=== PATIENT | male | born 1945 | race Caucasian/White ===

== ENCOUNTER → 2019-04-21 09:58 | Outpatient (CLI) | payer MEDICARE, OTHER, SELFPAY ==
--- NOTE | 2019-04-21 10:11 | XR_ITS ---
PROCEDURE: XR TOE LT MIN 2V CLINICAL INDICATION: S/P FALL, LT GREAST TOE COMPARISON: No exams were available for comparison FINDINGS: There is generalized mild osteopenia. There is narrowing of the left 1st digit interphalangeal joint. There is a punctate calcific density just medial to the distal aspect of the proximal phalanx of the 1st digit. This could be related to a ligament or tendon. No evidence of acute fracture. IMPRESSION: No acute process. Osteopenia. Degenerative change at the left 1st digit interphalangeal joint. Dictated by: Magnus Aldana 04/21/2019 12:28 Electronically signed by Magnus Aldana in [place] 04/21/2019 12:28
--- NOTE | 2019-04-21 10:11 | XR_ITS ---
PROCEDURE: XR FOOT LT MIN 3V CLINICAL INDICATION: S/P FALL, LT GREAST TOE COMPARISON: No exams were available for comparison FINDINGS: There is mild osteopenia. There is narrowing of the 1st digit interphalangeal joint. There is also some generalized mild narrowing of all of the other interphalangeal joints of the digits. There is no acute fracture. There is a 3.0 millimeter plantar calcaneal spur. Soft tissues are unremarkable. IMPRESSION: No acute process. Plantar calcaneal spur. Interphalangeal joint degenerative changes. Dictated by: Magnus Aldana 04/21/2019 12:30 Electronically signed by Magnus Aldana in [facility] 04/21/2019 12:30
== END ==
PROVIDERS: PCP Internal Medicine Adolescent Medicine; Visit Provider Internal Medicine Adolescent Medicine
DX: M79.675 Pain in left toe(s) (principal)
CPT/HCPCS: 73630; 73660

== ENCOUNTER → 2019-08-05 13:35 | Outpatient (CLI) | payer MEDICARE, OTHER, SELFPAY ==
--- NOTE | 2019-08-05 13:39 | US_ITS ---
PROCEDURE: US KIDNEY CLINICAL INDICATION: CKD III Chronic renal disease COMPARISON: No exams were available for comparison FINDINGS: The right kidney is [id number]. No hydronephrosis, cortical thinning, or renal mass or perinephric fluid collection is evident. The left kidney is [id number]. There is a benign-appearing 4.6 cm left renal cyst IMPRESSION: 4.6 cm left renal cyst which appears benign. Otherwise negative bilateral renal ultrasound Dictated by: Compa Barrett MD 08/06/2019 12:51 Electronically signed by Compa Barrett MD in [facility] 08/06/2019 12:51
== END ==
PROVIDERS: PCP Internal Medicine Adolescent Medicine; Visit Provider Internal Medicine Nephrology
DX: N18.3 Chronic kidney disease, stage 3 (moderate) (principal)
CPT/HCPCS: 76770

== ENCOUNTER 2024-08-19 13:21 | Emergency (ER) | payer OTHER, MEDICARE, SELFPAY ==
[2024-08-19] VITALS (10 sets, daily range): BP systolic 94–121; BP diastolic 57–83; PULSE 62–92; RESP 14–18; TEMP 36.6; O2SAT 97–100; BMI 29.8
--- NOTE | 2024-08-19 13:35 | XR_ITS ---
FINAL REPORT CLINICAL HISTORY: Cough congestion FINDINGS: SINGLE VIEW CHEST The heart is normal in size. The mediastinum is unremarkable. The lungs are clear. There is no pneumothorax. IMPRESSION: No acute process. Reviewed, Interpreted and Dictated by Abdulkadir Lopez MD Transcribed by Janine Lozada Authenticated and [facility]
--- NOTE | 2024-08-19 13:35 | ED_ITS ---
<Statement entered by Isabel Treadwell MD - 08/19/24 15:29> I was consulted by the LAURA, and we discussed the complexity of problems being addressed. I approved the treatment and management plan for this patient's care in the emergency department, thus performing a substantive portion of the medical decision making. Isabel Treadwell MD Discharge Plan Disposition Patient Disposition: Admitted Condition: Fair Referrals Follow up/Referrals: Provider,Referral, MD [Primary Care Provider] - See instructions Clinical Impressions Clinical Impression: LINK (acute kidney injury), Declining functional status, Hypomagnesemia, Elevated brain natriuretic peptide (BNP) level, Hypokalemia Atrial fibrillation Qualifiers: Atrial fibrillation type: unspecified Qualified Code(s): I48.91 - Unspecified atrial fibrillation Anemia Qualifiers: Anemia type: unspecified type Qualified Code(s): D64.9 - Anemia, unspecified Print Language Print Language: Mohawk Discharge ED Provider: Isabel Treadwell General Adult HPI General Chief complaint: Altered Mental Status Stated complaint: ams Time Seen by Provider: 08/19/24 13:34 History of Present Illness HPI narrative: Patient presents initially via EMS for altered mental status. Unfortunately patient is unable to provide any meaningful history as he has advanced dementia and also has had a previous stroke. We do not have any previous medical history or visit data to call from. Patient arrives also with the ornament maker hand's department in attendance. Patient himself is oriented to self but not place or circumstance. Patient's son arrived who is his power of associate attorney and provides more details. Patient lives in his own house on his own property. The power of associate attorney son also lives on the property in a separate residence. Patient has a brother that was residing with his dad and supposed to be providing care for him making sure that he got to appointments and most support of his activities of daily living. However it was found that the patient was not attending any of his expected appointments. We do not know if he has been compliant with his medications. Patient apparently told his son that he had not eaten or drank in a week. Patient told me that he only had congestion and a cough. He denies chest pain shortness of breath fever chills hemoptysis hematochezia melena nausea vomiting diarrhea. Related Data Allergies Allergy/AdvReac Type Severity Reaction Status Date / Time No Known Allergies Allergy Unverified 07/10/17 14:28 [facility] Disclaimer: The information contained in this section may have been updated after the patient was seen, as this information can be updated by other users. Social History Smoking Status: Former smoker alcohol intake: former current occupational status: retired and disabled Travel in the last 8 weeks: None ROS Obtained: Yes Systems reviewed as appropriate & no additional complaints except as documented Physical Exam General General appearance: alert Respiratory Respiratory exam: Present normal lung sounds bilaterally Cardiovascular Cardiovascular exam: Present irregular rhythm Neurological Exam Neurological exam: Present alert, CN II-XII intact and normal gait; Absent oriented X3 or motor sensory deficit Medical Decision Making Medical Records Medical records reviewed: Yes I reviewed the patient's medical records. Screening: Per USPSTF and CDC recommendations, given the prevalence of disease in our region, it is our hospital?s policy to screen for HIV and viral Hepatitis for all patients aged 18 and over and those with ongoing risk factors. MR Comment: Patient has no medical records to review at our facility other than imaging [place] Inquiry Pt receiving controlled substance: No Vital Signs: 08/19/24 13:30 08/19/24 13:32 08/19/24 13:45 Temperature 97.9 F Temperature Source Oral Pulse Rate 76 78 Pulse Rate [Left] 85 Respiratory Rate 14 Blood Pressure 121/75 117/74 Blood Pressure [Right Arm] 121/75 Blood Pressure Mean [Right Arm] 90 Blood Pressure Source [Right Arm] Automatic Cuff Blood Pressure Position [Right Arm] Sitting 02 Sat by Pulse Oximetry 98 100 98 Oxygen Delivery Method Room Air Room Air Room Air 08/19/24 14:15 08/19/24 14:30 Temperature Temperature Source Pulse Rate 92 H 82 Pulse Rate [Left] Respiratory Rate Blood Pressure 105/70 L 116/83 Blood Pressure [Right Arm] Blood Pressure Mean [Right Arm] Blood Pressure Source [Right Arm] Blood Pressure Position [Right Arm] 02 Sat by Pulse Oximetry 100 99 Oxygen Delivery Method Room Air Room Air Lab Data Lab results reviewed: Yes I reviewed the patient's lab results. Lab Results 08/19/24 13:25: WBC 7.5, RBC 4.23 L, Hgb 10.9 L, Hct 34.1 L, MCV 80.6, MCH 25.8 L, MCHC 32.0, RDW 14.2, Plt Count 224, MPV 13.1 H, Neut % (Auto) 70.3, Lymph % (Auto) 18.3, Iron % (Auto) 8.3, Eos % (Auto) 2.0, Baso % (Auto) 0.8, Neut # (Auto) 5.3, Lymph # (Auto) 1.4, Iron # (Auto) 0.6, Eos # (Auto) 0.2, Baso # (Auto) 0.1, PT 12.4 H, INR 1.15 H, Sodium 136, Potassium 3.4 L, Chloride 97 L, Carbon Dioxide 28, Anion Gap 14.4, BUN 26 H, Creatinine 1.80 H, Estimated Creat Clear 47, Estimated GFR 37 L, Est GFR ( Amer) 44 L, Glucose 106 H, Calcium 10.0, Magnesium 1.5 L, Total Bilirubin 3.1 H, AST 45, ALT 33, Alkaline Phosphatase 71, Troponin I < 0.01, NT-Pro-B Natriuret Pep 820 H, Total Protein 6.6, Albumin 3.9, Globulin 2.7, Albumin/Globulin Ratio 1.4, Procalcitonin 0.095, HCV Ab NOAH w/Rflx PCR Qn Negative, HIV Ag/Ab Combo Qual Negative 08/19/24 13:42: SARS-CoV-2 (PCR) Not detected, Influenza A Untype (PCR) Not detected, Influenza Type B (PCR) Not detected 08/19/24 14:38: Urine Color Yellow, Urine Appearance Clear, Urine pH 6.0, Ur Specific [place] >= 1.030, Urine Protein Trace, Urine Glucose (UA) Negative, Urine Ketones Trace, Urine Blood 2+ A, Urine Nitrate Negative, Urine Bilirubin 2+ A, Urine Urobilinogen 2.0, Ur Leukocyte Esterase Negative 08/19/24 13:25 08/19/24 13:25 Orders (Tests/Meds): ED MEDICATIONS Generic Name Dose Route Start Last Admin Trade Name Freq PRN Reason Stop Dose Admin Magnesium Sulfate 2 gm in 50 mls @ 50 mls/hr 08/19/24 14:05 08/19/24 14:13 Magnesium Sulfate 2gm/50ml Premix IV 08/19/24 15:04 50 mls/hr ONCE ONE Administration Discontinued Medications Generic Name Dose Route Start Last Admin Trade Name Freq PRN Reason Stop Dose Admin Ondansetron HCl 4 mg 08/19/24 13:35 08/19/24 13:43 Ondansetron 4mg Odt SL 08/19/24 13:36 4 mg ONCE ONE Administration ORDERS Category Date Time Status XR chest portable Stat Exams 08/19/24 13:35 Taken BNP [NT Pro Brain Natriuretic Pep.] Stat Lab 08/19/24 13:25 Completed CBC w/Auto Diff [Complete Blood Count Auto Diff] Stat Lab 08/19/24 13:25 Completed CMP [Comprehensive Metabolic Panel] Stat Lab 08/19/24 13:25 Completed HIV Combo Stat Lab 08/19/24 13:25 Completed Hepatitis C Ab Qual. W/ RFX Stat Lab 08/19/24 13:25 Completed INR [Prothrombin Time INR] Stat Lab 08/19/24 13:25 Completed Magnesium Stat Lab 08/19/24 13:25 Completed Procalcitonin Stat Lab 08/19/24 13:25 Completed Rapid PCR Covid and Flu A/B Stat Lab 08/19/24 13:42 Completed Trop I [Troponin I] Stat Lab 08/19/24 13:25 Completed Troponin I Q3H Lab 08/19/24 16:45 Ordered Troponin I Q3H Lab 08/19/24 19:45 Ordered UA [Urinalysis and Microscopic] Stat Lab 08/19/24 14:38 Results HEART Score History (anamnesis): Slightly suspicious ECG: Non-specific disturbance Age: >65 years Risk factors: 3 or more risk factors Troponin: </= normal limit HEART Score: 5 Medical Decision Narrative: In summary patient is a 78-year-old male who presents to the emergency department for evaluation of functional decline and failure to thrive. Patient is patiently hemodynamically stable at a blood pressure of 121/75 pulse of 76 but appears to be atrial fibrillation on the bedside monitor breathing 14 times a minute satting at 98% on room air upon arrival, and afebrile at 97.9. Physical exam is remarkable for a well-nourished well-developed 78-year-old gentleman who does not appear to be in acute distress. He is oriented only to person not place time or circumstance. Patient has no focal neurologic deficits and patient's son confirms that he is at his baseline mental functioning. Breath sounds are clear and equal bilaterally to the bases, heart sounds show an irregularly irregular controlled rate and rhythm without murmurs gallops rubs or thrills no dependent edema noted, abdomen is soft nontender no rebound or guarding no rigidity. Differential diagnosis includes many possible diagnoses including failure to thrive versus functional decline versus new onset A-fib versus renal failure versus infection etc. Initial workup will be conducted with a broad workup with twelve-lead EKG urinalysis hematologic labs plain film chest x-ray.. Initial interventions include Zofran as patient complains of nausea. Initial workup reviewed by me [hematologic labs are remarkable for... Imaging remarkable for... Urinalysis remarkable for]. Upon repeat evaluation shows that her white count is 7.5 hemoglobin hematocrit 10.9 and 34.1 with an MCHC of 32 and an absolute neutrophil count of 5.3, and INR of 1.15, CMP is significant for potassium 3.4 chloride of 97 CO2 of 28 gap of 14 BUN of 26 creatinine of 1.8 GFR of 37 nonfasting glucose of 106 calcium of 10 and magnesium of 1.5 total bilirubin of 3.1 AST of 45 ALT of 33 alk phos of 71 initial troponin of less than 0.01 NT proBNP of 820 and albumin of 3.9 procalcitonin of 0.095 urinalysis that shows 20-50 red cells but otherwise is bland with no leukocytes or nitrates. My informal interpretation of his plain film chest x-ray shows no acute processes.. Given this patient has several derangements that may be chronic or new but we are unable to determine. We will hydrate the patient gently due to the fact that he has an elevated creatinine and decreased GFR although he may have chronic kidney failure, his EKG changes show ST depressions and atrial fibrillation again we do not know if these are new or chronic findings however his initial troponin suggest that he does not have evidence of ACS, we do not know if he is anticoagulated chronically, his NT proBNP is elevated which may reflect heart failure or is a secondary cause of his A-fib, he does have hypomagnesemia which will be repleted IV, and he has anemia which we do not know if it is new or chronic but has no evidence of bleeding currently. Given this I contacted the [facility] transfer center because patient [facility] all of [facility] and [facility] P[facility] at the [facility] however they do not have any bed availability so they asked if we could admit here until we can transfer. Given that I had an interactive discussion with hospital medicine regarding patient MARY findings and patient management and he will be admitted here for further evaluation and care. Critical Care Critical Care Time Critical Care Time: Yes Attestation: On 08/19/24, the high probability of a clinically significant, sudden or life threatening deterioration of the following system(s) required my full and direct attention, intervention and personal management. The time I documented below is in addition to time spent performing reported procedures but includes the following listed in this critical care notation. Total Time Total Critical Care Time: 35
--- NOTE | 2024-08-19 13:41 | ECG_ITS ---
APPROVED REPORT Exam: Resting ECG HR:85 bpm ECG Measurements Heart Rate 85 AXES QRSd 91 QRS 84 QT 359 T -16 QTc [address] DEVIATION AND MODERATE T-WAVE ABNORMALITY, CONSIDER ANTERIOR ISCHEMIA [-0.1+ mV T-WAVE IN V3/V4] ST DEVIATION AND MODERATE T-WAVE ABNORMALITY, CONSIDER INFERIOR ISCHEMIA [-0.1+ mV T-WAVE IN II/aVF] ABNORMAL ECG UNCONFIRMED REPORT Abnormal Electrocardiogram Electronically signed by : Isabel Treadwell, 08/22/2024 07:12:30
[2024-08-19] MEDS: ONDANSETRON 4MG ODT 4 MG SL (13:43)
[2024-08-19 13:46] LABS: Coronavirus 19, PCR Not Detected (NotDetected); Influenza A, PCR Not Detected (NotDetected); Influenza B, PCR Not Detected (NotDetected)
--- NOTE | 2024-08-19 13:49 | PC.NURSE ---
portable rad at [facility]
[2024-08-19 13:50] LABS: Magnesium 1.5 mg/dl (1.6-2.3)
[2024-08-19 13:51] LABS: Alanine Aminotransferase 33 U/L (12-78); Albumin Level 3.9 g/dl (3.5-5.0); Albumin/Globulin Ratio 1.4 (1.1-1.8); Alkaline Phosphatase 71 U/L (38-126); Anion Gap 14.4 mEq/L (5-15); Aspartate Amino Transferase 45 U/L (17-59); Bilirubin,Total 3.1 mg/dl (0.2-1.3); Blood Urea Nitrogen 26 mg/dl (9-20); Carbon Dioxide 28 mmol/L (22.0-30.0); Chloride 97 mmol/L (98-107); Creatinine Clearance Estimated 47 mL/min (50-200); Estimated Glomerular Filt Rate 37 ml/min (>60); GFR (African American) 44 ML/MIN (>60); Globulin 2.7 g/dL (1.3-3.2); Glucose 106 mg/dl (74-100); Potassium 3.4 mmoL/L (3.5-5.1); Sodium 136 mmol/L (136-145); Total Protein,Serum 6.6 g/dl (6.3-8.2)
[2024-08-19 13:59] LABS: NT Pro Brain Natriuretic Pep. 820 pg/mL (0-450)
[2024-08-19 14:01] LABS: Troponin I < 0.01 ng/ml (0.00-0.034)
--- NOTE | 2024-08-19 14:02 | PC.NURSE ---
Fax release sent to [facility] to receive medical records.
[2024-08-19 14:07] LABS: Procalcitonin 0.095 ng/mL (0.0-2.0)
[2024-08-19] MEDS: MAGNESIUM SULFATE IN WATER 2 GM/50 ML PIGGYBACK IV (14:13)
--- NOTE | 2024-08-19 14:13 | ECG_ITS ---
APPROVED REPORT Exam: Resting ECG HR:85 bpm ECG Measurements Heart Rate 85 AXES QRSd 97 QRS 75 QT 373 T 186 QTc [address] F[address] DEVIATION AND MODERATE T-WAVE ABNORMALITY, CONSIDER ANTEROLATERAL ISCHEMIA [-0.1+ mV T-WAVE IN V3-V6] ABNORMAL ECG UNCONFIRMED REPORT Abnormal Electrocardiogram Electronically signed by : Isabel Treadwell, 08/22/2024 07:12:10
[2024-08-19 14:14] LABS: INR 1.15 (0.9-1.1); Prothrombin Time 12.4 seconds (9.2-12.1)
--- NOTE | 2024-08-19 14:15 | PC.NURSE ---
I rounded on the pt and took him a warm blanket. no needs voiced, call mcdaniel in reach.
--- NOTE | 2024-08-19 14:16 | PC.NURSE ---
14:13-Repeat EKG ordered and completed
[2024-08-19 14:22] LABS: Basophils # 0.1 K/mm3 (0-0.2); Basophils % 0.8 % (0.1-2.0); Eosinophils # 0.2 K/mm3 (0.0-0.4); Hematocrit 34.1 % (42.0-52.0); Hemoglobin 10.9 g/dL (14.1-18.0); Lymphocytes # 1.4 K/mm3 (0.7-4.5); Lymphocytes % 18.3 % (10-50); Mean Corpuscular Hemoglobin 25.8 pg (27.0-31.2); Mean Corpuscular Volume 80.6 fl (80-94); Mean Platelet Volume 13.1 fl (7.4-10.4); Monocytes # 0.6 K/mm3 (0.1-1.0); Monocytes % 8.3 % (1.7-9.3); Neutrophils # 5.3 K/mm3 (1.8-7.8); Neutrophils % 70.3 % (37.0-80.0); Platelet Count 224 K/mm3 (142-424); Red Blood Count 4.23 M/mm3 (4.60-6.20); Red Cell Distribution Width 14.2 % (11.5-17.5); White Blood Count 7.5 K/mm3 (4.8-10.8)
[2024-08-19 14:33] LABS: HIV Combo NEGATIVE (Negative)
--- NOTE | 2024-08-19 14:36 | PC.NURSE ---
MATEO George at updating family on POC.
[2024-08-19 14:41] LABS: Hepatitis C Ab Qual. W/ RFX NEGATIVE (Negative)
--- NOTE | 2024-08-19 14:46 | PC.NURSE ---
called [facility] and they state no beds at this time so call back in 2 hours to see if there has been any discharges which they doubt or admit at our facility
[2024-08-19 14:48] LABS: Appearance,Urine CLEAR (Clear); Blood, Urine 2+ (Negative); Color,Urine YELLOW (Yellow); Glucose,Urine (UA) Negative (Negative); Ketones,Urine TRACE (Negative); Leukocyte Esterase,Urine Negative (Negative); Microscopic, Urine URINE MICROSCOPIC (MICROSCOPIC); Nitrate,Urine Negative (Negative); Protein,Urine TRACE (Negative); Specific Gravity, Urine >= 1.030 (1.005-1.030)
--- NOTE | 2024-08-19 14:50 | PC.NURSE ---
calling al er # [phone] for pa to speak with al er
[2024-08-19 14:51] LABS: Bilirubin,Urine 2+ (Negative)
[2024-08-19 15:03] LABS: Bacteria,Urine Trace /lpf; RBC,Urine 20-50 #/hpf (0-3); Squamous Epithelial Cell,Urine Occasional #/hpf (0-5); WBC,Urine Occasional #/hpf (0-3)
[2024-08-19 15:04] LABS: White Blood Cell Casts,Urine Occasional #/lpf (0)
--- NOTE | 2024-08-19 15:25 | PC.NURSE ---
Becky, Care Management at [facility] to talk with family, per family request
--- NOTE | 2024-08-19 15:47 | CARE MANAGER ---
Spoke with patient who knew his name and date of . He does not know where he is. He does tell me I can speak with his son. His son states that he had previously been taken care of by his other son and that [facility] and [facility] unsure if he has received his medications. They are interested in placement. Discussed possibilities of private pay, Medicaid pending, and [facility] pay. Spoke with Lyla at [facility] and he has a SNF benefit. Patient is being admitted. Will follow up with them after talking with [facility].
--- NOTE | 2024-08-19 15:48 | SW/DCPLANNER ---
I have left a voicemail for [facility] [employer] [facility] (Evie Saba [phone]) regarding placement for this patient. [facility] fax [phone]
--- NOTE | 2024-08-19 15:55 | PC.NURSE ---
Report called to Janina Han by CHRISTOPHER HAN
== END 2024-08-19 17:12 | disposition left against medical advice (07) ==
LOC: ER 14:57 → 2ND 15:45
PROVIDERS: Physician Assistant; Emergency Provider Student in an Organized Health Care Education/Training Program
DX: N17.9 Acute kidney failure, unspecified (principal); R53.81 Other malaise; E83.42 Hypomagnesemia; R79.89 Other specified abnormal findings of blood chemistry; I48.91 Unspecified atrial fibrillation; D64.9 Anemia, unspecified; E87.6 Hypokalemia; F03.C0 Unspecified dementia, severe, without behavioral disturbance, psychotic disturbance, mood disturbance, and anxiety; R09.81 Nasal congestion; R05.9 Cough, unspecified; R11.0 Nausea; Z86.73 Personal history of transient ischemic attack (TIA), and cerebral infarction without residual deficits
CPT/HCPCS: 71045; 80053; 81001; 83735; 83880; 84145; 84484; 85025; 85610; 86803; 87389; 87636; 93005; 99291; J3475; Q0162; S0119